=== PATIENT | male | born 1975 | race Caucasian/White ===

== ENCOUNTER 2019-08-08 09:14 | Emergency (ER) | payer BC ==
[2019-08-08 09:57] VITALS: BP 122/89
[2019-08-08] MEDS ORDERED: predniSONE TAB* 20 MG PO ONE (10:13)
[2019-08-08] MEDS ORDERED: HYDROcodone/ACETAMIN 5-325 MG* 1 TAB PO ONE (10:13)
--- NOTE | 2019-08-08 10:19 | UC ---
UC General HPI - HPI Summary HPI Summary: 44-year-old male comes in with a chief complaint of left-sided head pain. Started yesterday. Is intermittent sharp shooting. The worst pain is the left scalp in the occipital parietal area. No known trauma. Does have known TMJ he does grind his teeth a lot at night. No complaint of dental problems or difficulty swallowing. No fevers or chills. No rash. Is been taking a nonsteroidal anti-inflammatory is not helping. He's had this in the past approximately once per year but usually is not very severe doesn't last as long. He's had no prior evaluation of this pain. His neck does feel tense that he believes it's because he is responding to the episodes of pain. - History of Current Complaint Chief Complaint: UCEar Stated Complaint: EAR PAIN Time Seen by Provider: 08/08/19 09:47 Pain Intensity: 10 - Allergy/Home Medications Allergies/Adverse Reactions: Allergies Allergy/AdvReac Type Severity Reaction Status Date / Time No Known Allergies Allergy Verified 08/08/19 09:47 Home Medications: Home Medications Ibuprofen TAB* [Advil TAB*] 800 mg PO Q6H PRN 08/08/19 [History Confirmed ] buPROPion TAB* [Wellbutrin TAB*] 75 mg PO DAILY 08/08/19 [History Confirmed ] PMH/Surg Hx/FS Hx/Imm Hx Previously Healthy: Yes - Surgical History Surgical History: None - Family History Known Family History: Positive: Non-Contributory - Social History Alcohol Use: Daily Alcohol Amount: 6 beers/day 10/17/15 Substance Use Type: Marijuana Substance Use Comment - Amount & Last Used: OCC Smoking Status (MU): Heavy Every Day Tobacco Smoker Type: Cigarettes Amount Used/How Often: 1.5 PPD Have You Smoked in the Last Year: Yes Review of Systems All Other Systems Reviewed And Are Negative: Yes Constitutional: Positive: Negative Skin: Positive: Other - SEE HPI Eyes: Positive: Negative ENT: Positive: Other - SEE HPI Respiratory: Positive: Negative Cardiovascular: Positive: Negative Gastrointestinal: Positive: Negative Motor: Positive: Negative Neurovascular: Positive: Other - SEE HPI Musculoskeletal: Positive: Other: - SEE HPI Neurological: Positive: Other - SEE HPI Psychological: Positive: Negative Is Patient Immunocompromised?: No Physical Exam Triage Information Reviewed: Yes Appearance: Well-Appearing, No Pain Distress, Well-Nourished Vital Signs: Initial Vital Signs Temp 98.3 F 08/08/19 09:50 Pulse 79 08/08/19 09:50 Resp 16 08/08/19 09:50 BP 122/89 08/08/19 09:50 Pulse Ox 100 08/08/19 09:50 Vital Signs Reviewed: Yes Eye Exam: Normal Eyes: Positive: Conjunctiva Clear ENT: Positive: Pharynx normal, TMs normal, Other - On examination on the left side of the face the parotid gland and submandibular glands are nontender the TMJ is nontender. TMs are normal ear canals are normal no pain with palpation of the tragus or traction on the pinna. Patient describes the location of the pain in the occipital nerve distribution on the left. No rash seen here. Neck: Positive: Supple Respiratory: Positive: No respiratory distress Musculoskeletal: Positive: Strength Intact, ROM Intact Neurological: Positive: Alert Psychological: Positive: Age Appropriate Behavior Skin Exam: Normal Course/Dx - Course Course Of Treatment: The distribution of the pain is in the left occipital nerve. Non-steroidal anti -inflammatories are not helping. Prescribed prednisone to help with inflammation. There is no rash so shingles does not appear to be the cause and plus the patient's had this pain on and off for the past without any rash. No evidence of any dental problems or ear problems or parietal gland and submandibular gland cause. Also given a prescription for [place] and Flexeril to help treat symptomatically. No focal neurologic deficit. Patient to follow-up with neurology. Evaluate sooner if worse. - Diagnoses Provider Diagnosis: Head pain Discharge ED - Sign-Out/Discharge Documenting (check all that apply): Patient Departure All imaging exams completed and their final reports reviewed: No Studies - Discharge Plan Condition: Stable Disposition: HOME Prescriptions: Cyclobenzaprine TAB* [Flexeril 10 MG TAB*] 10 mg PO TID PRN #15 tab MDD 3 PRN Reason: Pain - Moderate HYDROcodone/ACETAMIN 5-325 MG* [[place] 5-325 TAB*] 1 tab PO Q4H PRN #20 tab MDD 6 PRN Reason: Pain - Moderate predniSONE TAB* [Deltasone 20 MG TAB*] 40 mg PO DAILY #10 tab Patient Education Materials: Temporomandibular Disorder (ED), Acute Headache ( ED) Referrals: Alex Carey DO [Primary Care Provider] - Seth Chavez MD [Medical Doctor] - Additional Instructions: FOLLOW UP WITH NEUROLOGY. WEAR YOUR MOUTH GUARD FOR TMJ. I SUSPECT THE CAUSE OF YOUR PAIN IS OCCIPITAL NEURALGIA. GET REEVALUATED SOONER IF WORSE OR ANY QUESTIONS OR CONCERNS. - Billing Disposition and Condition Condition: STABLE Disposition: Home
== END 2019-08-08 10:31 | disposition home or self-care (01) ==
LOC: UCCORT 09:14
DX: R51 Headache (principal); F17.210 Nicotine dependence, cigarettes, uncomplicated
CPT/HCPCS: 99212; G0463; J7512